=== PATIENT | male | born 1975 | race African-American/Black ===

== ENCOUNTER 2018-09-22 15:30 | Emergency (ER) | payer SELFPAY ==
[2018-09-22] MEDS ORDERED: IBUPROFEN 600 MG TABLET PO ONE (16:27)
[2018-09-22] MEDS ORDERED: DIPH/PERTUSS(ACELL)/TETANUS VAC/PF 0.5 ML SYR (>=10YO) IM ONE (16:27)
--- NOTE | 2018-09-22 16:37 | ER Document Report ---
HPI - HPI Time Seen by Provider: 09/22/18 16:12 Pain Level: 2 Context: Patient is a 42-year-old male who presents emergency department with a chief complaint of a dog bite. The dog bit him on his left upper leg. This happened about 40 minutes prior to arrival here at the emergency department. The patient does not know the dog. States the dog is a stray dog. Patient is not up-to-date on his tetanus shot. - ROS Systems Reviewed and Negative: Yes All other systems reviewed and negative - CONSTITUTIONAL Constitutional: DENIES: Fever, Chills - NEURO Neurology: DENIES: Headache - CARDIOVASCULAR Cardiovascular: DENIES: Chest pain - RESPIRATORY Respiratory: DENIES: Coughing - MUSCULOSKELETAL Musculoskeletal: REPORTS: Extremity pain - Left medial distal thigh Past Medical History - Social History Smoking Status: Current Every Day Smoker Frequency of alcohol use: Occasional Drug Abuse: Marijuana Family History: Reviewed & Not Pertinent Vertical Provider Document - CONSTITUTIONAL Agree With Documented VS: Yes Exam Limitations: No Limitations General Appearance: No Apparent Distress - INFECTION CONTROL TRAVEL OUTSIDE OF THE [place] IN LAST 30 DAYS: No - HEENT HEENT: Atraumatic, Normocephalic - NECK Neck: Normal Inspection - RESPIRATORY Respiratory: Breath Sounds Normal, No Respiratory Distress - CARDIOVASCULAR Cardiovascular: Regular Rate, Regular Rhythm Pulses: Normal: Radial - GI/ABDOMEN Gastrointestinal: Abdomen Soft - MUSCULOSKELETAL/EXTREMETIES Musculoskeletal/Extremeties: FROM, Tender - Left medial distal thigh, No Edema. negative: Eccymosis - NEURO Level of Consciousness: Awake, Alert, Appropriate Motor/Sensory: No Motor Deficit, No Sensory Deficit - DERM Integumentary: Warm, Dry, No Rash, Laceration - Puncture wound to left distal medial thigh Course - Re-evaluation Re-evalutation: 09/22/18 16:53 I have discussed the risks and benefits to the rabies vaccine with the patient. The patient has opted to not to have the rabies vaccine. The patient is requesting to have his tetanus shot, since he is not up-to-date. We will an x- ray of the left knee will be done. There are 2 small puncture wounds. They will be left open. I will start the patient on Augmentin. There is no surrounding cellulitis. The puncture wound will not be closed. It was cleaned with saline and surgical soap. 09/22/18 17:15 The patient's x-rays negative for any acute fracture. I do not suspect a tendon injury. The patient is in agreement with his discharge instructions. Verbal discharge instructions were given to the patient. They verbalized understanding. They are stable for discharge. - Vital Signs Vital signs: Temp Pulse Resp BP Pulse Ox 98.2 F 97 16 137/85 H 98 09/22/18 15:34 09/22/18 15:34 09/22/18 15:34 09/22/18 15:34 09/22/18 15:34 Discharge - Discharge Clinical Impression: Dog bite Qualifiers: Encounter type: initial encounter Qualified Code(s): W54.0XXA - Bitten by dog, initial encounter Condition: Stable Disposition: HOME, SELF-CARE Additional Instructions: Please monitor very closely for any signs of infection from your dog bite including spreading redness from the area, pus from the wound, or worsening pain. Clean the area twice daily with soap and water and then apply topical antibiotic ointment. Please take all the antibiotics that you were prescribed until they are gone. Follow-up with your primary care physician as needed. Prescriptions: Amox Tr/Potassium Clavulanate [Augmentin 875-125 Tablet] 1 tab PO BID 10 Days #20 tablet Referrals: DARBY HYDE MD [Primary Care Provider] - Follow up in 3-5 days
--- NOTE | 2018-09-22 17:10 | RADIOLOGY REPORT (SQ) ---
EXAM DESCRIPTION: KNEE LEFT 2 VIEWS COMPLETED DATE/TIME: 09/22/2018 5:01 pm REASON FOR STUDY: dog bite COMPARISON: None. NUMBER OF VIEWS: Two views. TECHNIQUE: AP and lateral radiographic images acquired of the left knee. LIMITATIONS: None. FINDINGS: MINERALIZATION: Normal. BONES: No acute fracture or dislocation. No worrisome bone lesions. JOINT: No effusion. SOFT TISSUES: No soft tissue swelling. No radio-opaque foreign body. OTHER: No other significant finding. IMPRESSION: NEGATIVE STUDY OF THE LEFT KNEE. NO RADIOGRAPHIC EVIDENCE OF ACUTE INJURY. TECHNICAL DOCUMENTATION: JOB ID: [id number] [employer]- All Rights Reserved Reading location - IP/workstation name: [email or web address]
[2018-09-22 17:20] VITALS: BP 109/78
== END 2018-09-22 17:20 | disposition home or self-care (01) ==
LOC: ER 15:30
DX: S71.152A Open bite, left thigh, initial encounter (principal); W54.0XXA Bitten by dog, initial encounter; F17.210 Nicotine dependence, cigarettes, uncomplicated; Z23 Encounter for immunization
CPT/HCPCS: 90471; 90715; 99283